=== PATIENT | female | born 1955 | race Caucasian/White ===

== ENCOUNTER 2016-10-11 00:23 | Emergency (ER) | payer BC ==
[~2016-10-11] VITALS: Ht 167.6 cm; Wt 88.8 kg
[2016-10-11 01:25] LABS: HEMATOCRIT 30.5 % (37.0-47.0); HEMOGLOBIN 8.8 g/dl (12.0-16.0); IMMATURE GRANULOCYTES 0.1 % (0.0-1.0); MEAN CELL VOLUME 79.4 fL CALC (80.0-100.0); MEAN CORPUSCULAR HGB 22.9 pG CALC (26.0-32.0); MEAN CORPUSCULAR HGB CONC 28.9 g/L CALC (32.0-36.0); NEUT# 4.29 thou/uL (2.00-7.15); RED BLOOD COUNT 3.84 mill/uL (4.20-5.60); RED CELL DISTRI WIDTH 14.8 % (11.5-15.5)
[2016-10-11 01:48] LABS: ALBUMIN 4.2 g/dL (3.2-5.0); ALKALINE PHOSPHATASE 97 u/l (38-126); ANION GAP 17 (6-22 (CALC)); BILIRUBIN, TOTAL 0.3 mg/dL (0.0-1.4); BUN 8 mg/dL (7-17); BUN/CREATININE RATIO 14 (12-20 (CALC)); CALCIUM 8.7 mg/dL (8.4-10.2); CARBON DIOXIDE 26 mmol/l (22-30); CHLORIDE 102 mmol/l (95-108); CREATININE 0.6 mg/dL (0.5-1.0); GFR > 60 ML/MIN (>=60 (CALC)); GFR FOR AFR.AMER. > 60 ML/MIN (>=60 (CALC)); GLUCOSE 214 mg/dL (65-105); POTASSIUM 4.1 mmol/l (3.5-5.1); SGOT/AST 41 u/l (14-36); SGPT/ALT 32 u/l (9-52); SODIUM 140 mmol/l (137-146); TOTAL PROTEIN 6.7 g/dL (6.3-8.2)
[2016-10-11] MEDS ORDERED: BENADRYL 50MG C50 MG PO (01:56)
[2016-10-11 02:05] VITALS: BP 144/77
== END 2016-10-11 02:07 | disposition home or self-care (01) | DRG 607 ==
LOC: ED 00:23
PROVIDERS: Emergency Medicine
DX: L29.9 Pruritus, unspecified (principal); E11.9 Type 2 diabetes mellitus without complications; M19.90 Unspecified osteoarthritis, unspecified site

== ENCOUNTER 2016-12-13 19:32 | Emergency (ER) | payer BC ==
[~2016-12-13] VITALS: Ht 167.6 cm; Wt 86.2 kg
[~2016-12-13 19:32] MED LIST: BENADRYL 50MG C50 MG PO
[2016-12-13] MEDS ORDERED: METFORMIN500 M1 PO (19:47)
[2016-12-13] MEDS ORDERED: LAMICTAL150 MG PO (19:48)
[2016-12-13] MEDS ORDERED: FLUOXETINE20 MG PO (19:49)
[2016-12-13] MEDS ORDERED: GABAPENTIN300 M2 PO (19:49)
[2016-12-13] MEDS ORDERED: LEVOTHYROXIN50 MC1 PO (19:50)
[2016-12-13] MEDS ORDERED: OMEPRAZOLE20 M2 PO (19:51)
[2016-12-13] MEDS ORDERED: LOSARTAN POT50 MG PO (19:51)
[2016-12-13] MEDS ORDERED: LIPITOR40 M1 PO (19:52)
[2016-12-13] MEDS ORDERED: CREON24000 UNT PO (19:52)
[2016-12-13] MEDS ORDERED: BASAGLAR K100 UNIT/M SC ×2 (19:53→19:54)
[2016-12-13] MEDS ORDERED: PREDNISONE50 MG PO (20:01)
[2016-12-13] MEDS ORDERED: ZITHROMAX250 MG PO (20:01)
[2016-12-13] MEDS ORDERED: TESSALON PER100 MG PO (20:01)
[2016-12-13 20:12] VITALS: BP 132/70
== END 2016-12-13 20:12 | disposition home or self-care (01) | DRG 203 ==
LOC: ED 19:32
DX: J20.9 Acute bronchitis, unspecified (principal); E11.9 Type 2 diabetes mellitus without complications; M19.90 Unspecified osteoarthritis, unspecified site; Z98.84 Bariatric surgery status

== ENCOUNTER 2017-02-27 19:01 | Emergency (ER) | payer BC ==
[~2017-02-27] VITALS: Ht 167.6 cm; Wt 89.0 kg
[~2017-02-27 19:01] MED LIST changes: +BASAGLAR K100 UNIT/M SC; +CREON24000 UNT PO; +FLUOXETINE20 MG PO; +GABAPENTIN300 M2 PO; +LAMICTAL150 MG PO; +LEVOTHYROXIN50 MC1 PO; +LIPITOR40 M1 PO; +LOSARTAN POT50 MG PO; +METFORMIN500 M1 PO; +OMEPRAZOLE20 M2 PO; +PREDNISONE50 MG PO; +TESSALON PER100 MG PO; +ZITHROMAX250 MG PO
[2017-02-27 20:03] LABS: HEMATOCRIT 29.5 % (37.0-47.0); HEMOGLOBIN 8.5 g/dl (12.0-16.0); IMMATURE GRANULOCYTES 0.5 % (0.0-1.0); MEAN CELL VOLUME 72.7 fL CALC (80.0-100.0); MEAN CORPUSCULAR HGB 20.9 pG CALC (26.0-32.0); MEAN CORPUSCULAR HGB CONC 28.8 g/L CALC (32.0-36.0); NEUT# 3.5 thou/uL (2.00-7.15); RED BLOOD COUNT 4.06 mill/uL (4.20-5.60); RED CELL DISTRI WIDTH 16.6 % (11.5-15.5)
[2017-02-27 20:33] LABS: ALKALINE PHOSPHATASE 103 u/l (38-126); ANION GAP 16 (6-22 (CALC)); BILIRUBIN, TOTAL 0.5 mg/dL (0.0-1.4); BUN 11 mg/dL (7-17); BUN/CREATININE RATIO 18 (12-20 (CALC)); CALCIUM 9.3 mg/dL (8.4-10.2); CARBON DIOXIDE 28 mmol/l (22-30); CHLORIDE 102 mmol/l (95-108); CREATININE 0.6 mg/dL (0.5-1.0); GFR > 60 ML/MIN (>=60 (CALC)); GFR FOR AFR.AMER. > 60 ML/MIN (>=60 (CALC)); GLUCOSE 136 mg/dL (65-105); POTASSIUM 4.3 mmol/l (3.5-5.1); SGOT/AST 42 u/l (14-36); SGPT/ALT 35 u/l (9-52); SODIUM 142 mmol/l (137-146); TOTAL PROTEIN 6.7 g/dL (6.3-8.2)
[2017-02-27] MEDS ORDERED: BENADRYL 50MG C50 MG PO (22:47)
[2017-02-27 23:00] VITALS: BP 135/60
== END 2017-02-27 23:12 | disposition home or self-care (01) | DRG 607 ==
LOC: ED 19:01
PROVIDERS: Emergency Medicine
DX: L30.9 Dermatitis, unspecified (principal); M25.562 Pain in left knee; M79.662 Pain in left lower leg